=== PATIENT | male | born 1985 | race Caucasian/White ===

== ENCOUNTER 2017-03-02 02:37 | Emergency (ER) | payer OTHER ==
[~2017-03-02] VITALS: Ht 172.7 cm; Wt 84.1 kg
[2017-03-02 02:45] VITALS: TEMP 98.3
[2017-03-02] MEDS ORDERED: ZYRTEC5 MG PO (02:45)
[2017-03-02] MEDS ORDERED: NORCO 325 MG-51 TAB PO (03:43)
[2017-03-02] MEDS ORDERED: CEPHALEXIN500 M1 PO (03:43)
[2017-03-02 04:49] VITALS: BP 137/98; PULSE 109
== END 2017-03-02 04:30 | disposition home or self-care (01) ==
LOC: COL.ER 02:37
DX: S01.81XA Laceration without foreign body of other part of head, initial encounter (principal); V18.4XXA Pedal cycle driver injured in noncollision transport accident in traffic accident, initial encounter; Y92.410 Unspecified street and highway as the place of occurrence of the external cause